=== PATIENT | female | born 1930 | race African-American/Black ===

== ENCOUNTER 2019-03-15 14:12 | Emergency (ER) | payer MEDICARE, MEDICAID ==
--- NOTE | 2019-03-15 14:27 | CT ---
Exam: Brain CT without IV contrast: HISTORY: Level One stroke alert, right-sided weakness and ectasia COMPARISON: 04/17/2010 FINDINGS: Large left sided temporal and frontal and parietal subdural hematoma with extension to the falx as we ll as over the anterior left temporal floor resulting in 0.7 cm of midline shift to the right. IMPRESSION: Large left-sided subdural hematoma with marked mass effect and midline shift. Findings were discussed with Dr. Funez in the emergency room at 2:20 PM CODE CR
[2019-03-15 14:40] LABS: #Eosinphils 0.2 thou/uL (0.0-0.7); #Lymphocytes 2.2 thou/uL (1.20-3.40); #Monocytes 0.9 thou/uL (0.11-0.59); #Neutrophils 10.6 thou/uL (1.40-6.50); %Basophils 0.1 % (0.0-1.0); %Eosinophils 1.5 % (0.0-10.0); %Lymphocytes 15.8 % (21.0-51.0); %Monocytes 6.4 % (0.0-10.0); %Neutrophils 76.2 % (42.0-75.0); Hemoglobin 6.6 g/dL (12.0-16.0); Mean Corpuscular HGB CONC 32.6 g/dL (32.0-36.0); Mean Corpuscular Hemoglobin 20.7 pg (27.0-31.0); Mean Corpuscular Volume 63.5 fL (78.0-98.0); RBC Distribution Width 15.9 % (11.5-14.5); Red Blood Cell (RBC) Count 3.17 mill/uL (4.20-5.40); White Blood Cell (WBC) Count 13.9 thou/uL (4.8-10.8)
[2019-03-15 14:47] LABS: INR-International Normal Ratio 1.1; PTT 36.9 SEC (22.9-36.1); Prothrombin Time 14.5 SEC (12.0-14.7)
[2019-03-15 14:52] LABS: Mean Platelet Volume 11.7 fL (7.4-10.4); Platelet Count 215 thou/uL (130-400)
[2019-03-15 14:56] LABS: ALT (SGPT) 7 U/L (8-55); AST (SGOT) 21 U/L (5-34); Albumin 4.3 g/dL (3.4-4.8); Alkaline Phosphatase 87 U/L (40-150); Anion Gap 21 mmol/L (10-20); BUN (Urea Nitrogen) 79 mg/dL (9.8-20.1); Bilirubin, Total 0.4 mg/dL (0.2-1.2); CK (CPK) 420 U/L (29-168); Calc. Creatinine Clearance 0 mL/min (70-130); Calcium 9.8 mg/dL (7.8-10.44); Carbon Dioxide 17 mmol/L (23-31); Chloride 102 mmol/L (98-107); Estimated GFR-MDRD 8; Globulin 2.9 g/dL (2.4-3.5); Glucose 160 mg/dL (83-110); Potassium 5.1 mmol/L (3.5-5.1); Protein, Total 7.2 g/dL (6.0-8.3); Sodium 135 mmol/L (136-145)
[2019-03-15 15:11] LABS: Hypochromia SLIGHT = 6-15 cells (100X) (0-5/hpf); Large Platelets SLIGHT; MDiff Complete? YES; Microcytosis MODERATE=15-30 cells (100X) (0-5/hpf); Ovalocytes SLIGHT = 2-5 cells (100X) (0-1/hpf); Platelet Morphology Comment Appears Adequate; Polychromasia SLIGHT = 2-3 cells (100X) (0-2/hpf); Reflex for Review?? YES; Schistocytes SLIGHT = 2-5 cells (100X) (0-1/hpf); Target Cells SLIGHT = 2-5 cells (100X) (0-1/hpf); Tear Drops SLIGHT = 2-5 cells (100X) (0-1/hpf)
[2019-03-15 15:16] LABS: CKMB 4.9 ng/mL (0-6.6)
== END 2019-03-15 17:15 | disposition short-term general hospital (02) ==
LOC: ERS 14:12
DX: I62.00 Nontraumatic subdural hemorrhage, unspecified (principal); G81.91 Hemiplegia, unspecified affecting right dominant side; R47.81 Slurred speech; R79.89 Other specified abnormal findings of blood chemistry; N19 Unspecified kidney failure; D64.9 Anemia, unspecified; I11.0 Hypertensive heart disease with heart failure; I50.9 Heart failure, unspecified; E11.9 Type 2 diabetes mellitus without complications; Z87.891 Personal history of nicotine dependence; Z79.899 Other long term (current) drug therapy
CPT/HCPCS: 36416; 70450; 80053; 82550; 82553; 84484; 85025; 85060; 85610; 85730; 93005; 94760